=== PATIENT | male | born 1945 | race Caucasian/White ===

== ENCOUNTER 2019-10-03 16:36 | Emergency (ER) | payer MEDICARE, BC, SELFPAY ==
[2019-10-03] VITALS (19 sets, daily range): BP systolic 113–144; BP diastolic 66–74; PULSE 54–74; RESP 10–22; TEMP 36.9–37.4; O2SAT 95–100
--- NOTE | 2019-10-03 16:47 | ED.GENADUL_ITS ---
Discharge Plan Disposition Patient Disposition: HOME Condition: Improving Discharge Details Chief Complaint: Chest Pain Clinical Impression: Abdominal pain, epigastric Primary Care Provider: Chaparro Ware JR ED Provider: Carlo Kirkland Home Meds and New Rx's Prescriptions: No Action No Known Home Meds RF: 0 Discharge Instructions Instructions: Epigastric Pain (ED) Additional Instructions: 1. Drink plenty of fluids. 2. Continue all medications as prescribed. 3. Acetaminophen 1000mg every 4 hours (up to 5 time a day) and/or ibuprofen 600mg every 6 hours as needed for fever or pain. 4. Consider Pepcid 20 mg twice a day. Mylanta 30 cc as needed every 6 hours. Return to the Emergency Department (ED) if your condition worsens, does not improve as expected, or for ANY other concerns. Specifically, return if you have new or uncontrolled pain, worsening fever, difficulty breathing, vomiting, or are unable to drink fluids. Medical Decision Making 74-year-old gentleman who presented with an hour and a half of epigastric discomfort associated with eating a meal. Localized nonradiating pain to his epigastrium/lower chest. Exam normal except for epigastric tenderness which reproduced subjective pain. EKG on arrival negative. Bedside aortic ultrasound negative for evidence of aneurysm. Clinically improved after receiving oral antacids and IV metoclopramide. Labs normal including a negative troponin. On reevaluation, asymptomatic with no persistent abdominal discomfort, palpitations, or dyspnea. Discussed nondiagnostic findings, noting that his troponin was only drawn 1/2 hours after onset of symptoms. Recommended a 2-hour delta troponin. Patient felt clinically improved and appropriate for discharge home. Discharge plan for oral antacids, PCP follow-up, and return as needed. Given usual and customary return instructions prior to discharge. Medical Records Medical records reviewed: Yes I reviewed the patient's medical records. Imaging Data Radiologic Study: Imaging: Ultrasound (Limited bedside study) My impression: Proximal, mid, and distal transverse views of the order visualized with no evidence of aneurysm. Maximal aortic diameter 1.75 cm. No aneurysm visualized on sagittal view. Lab Data Lab results reviewed: Yes I reviewed the patient's lab results. Lab results narrative: Troponin, LFTs, BMP negative ECG Data Attestation: I personally reviewed and interpreted this ECG (s) as follows: (Sinus rhythm 71 bpm normal axis and intervals. Nonspecific changes. PVCs.) HPI 74-year-old gentleman with a past medical history which includes. Presents with 1/2 hours of atypical upper abdominal/midsternal chest discomfort. Endorses onset of symptoms after eating canned salmon and additional food. Had almost immediate onset of pain after this localized to his upper abdomen. He had one episode of emesis without change in symptoms. He endorses subjective heaviness in that region. Denies palpitations, tachycardia, diaphoresis, or near syncope. He has had no abdominal bloating, recent change in bowel habits, melena/hematochezia, or urinary symptoms. He denies a history of chest pain or coronary disease. General Date/Time Provider Initiated Documentation: 10/03/19 16:47 . Related Data Home Medications Medication Instructions Recorded Confirmed Unknown [No Known Home Meds] 10/03/19 10/03/19 Allergies Allergy/AdvReac Type Severity Reaction Status Date / Time No Known Allergies Allergy Unverified 10/03/19 16:49 General Stated Complaint: Chest Pain YANY: 2 Review of Systems All systems reviewed & are unremarkable except as noted in HPI and below PFSH Social History Smoking/Tobacco Use Status: Never Drug use: Never Substance use type: does not use Do you feel safe at home: Yes Do you feel safe in your relationship?: Yes Exam Narrative Exam Narrative: Nursing note and vital signs have been reviewed and noted. GENERAL: alert, active, uncomfortable appearance, belching frequently., well - hydrated, well-nourished HEENT: atraumatic/normocephalic, PERRLA, EOMI, conjunctiva clear, external ears/canals normal, nasal mucosa normal NECK: supple, full range of motion, no mass, normal lymphadenopathy, no thyromegaly CARDIOVASCULAR: RRR, no murmurs, nl pulses, no edema PULMONARY: nl effort, no audible wheezing or stridor, nl breath sounds with no focal deficit. no chest wall tenderness ABDOMEN: soft, epigastric tenderness. Palpation reproduces subjective pain, non-distended, no mass, no organomegaly EXTREMITY: normal muscle tone, all joints with FROM, no deformity or tenderness SKIN: no exanthem appreciated NEURO: gross motor exam normal, normal stance and gait PSYCH: alert and oriented, Course Vital Signs Vital signs: Vital Signs Temperature 99.3 F 10/03/19 16:38 Pulse 71 10/03/19 16:38 Respiratory Rate 10/03/19 16:38 Blood Pressure 132/67 10/03/19 16:38 Pulse Oximetry 100 10/03/19 16:38 Temperature 99.3 F 10/03/19 16:38 Temperature Source Skin 10/03/19 16:38 Pulse 71 10/03/19 16:38 Respiratory Rate 10/03/19 16:38 Blood Pressure 132/67 10/03/19 16:38 Blood Pressure Position Sitting 10/03/19 16:38 Pulse Oximetry 100 10/03/19 16:38 Oxygen Delivery Method Room Air 10/03/19 16:38 Oxygen Flow Rate 0 10/03/19 16:38 Pain Level 8 10/03/19 16:38
[2019-10-03] MEDS: Mylanta Suspension 30 ML CUP PO (17:03)
[2019-10-03] MEDS: Metoclopramide 10 MG/2 ML VIAL IVP (17:04)
[2019-10-03] MEDS: Normal Saline Flush 10 ML SYR IVP (17:06)
[2019-10-03] MEDS: Normal Saline 1,000 ML 125 ML IV (17:08)
[2019-10-03 17:10] LABS: Abs Immature Grans 0.02 k/cumm (0.0-0.09); Absolute Basophil Count 0.03 k/cumm (0.0-0.2); Absolute Eosinophil Count 0.07 k/cumm (0.0-0.7); Absolute Lymphocyte Count 1.49 k/cumm (1.2-3.4); Absolute Monocyte Count 0.41 k/cumm (0.11-0.7); Absolute Neutrophil Count 4.67 k/cumm (1.2-6.7); Basophils % 0.4; HCT 51.5 % (40.0-50.0); Immature Grans % 0.3; Lymphocytes % 22.3; Mean Corpuscular Hemoglobin 31.9 pg (27.0-33.0); Mean Corpuscular Volume 91.3 fL (80-95); Mean Platelet Volume 12.4 fL (8.0-11.0); Monocytes % 6.1; Neutrophils % 69.9; Platelet Count 164 x1000/uL (130-400); RBC 5.64 m/cumm (4.50-6.00); RBC Distribution Width 12.7 % (11.8-14.1); White Blood Cell Count 6.69 k/cumm (4.4-10.8)
[2019-10-03 17:27] LABS: ALT 29 U/L (16-63); AST 21 U/L (15-37); Albumin 4.5 g/dL (3.4-5.0); Alkaline Phosphatase 99 U/L (46-116); Anion Gap 12.6 mmol/L (3-11); BUN 14 mg/dL (7-18); Bilirubin, Total 1.2 mg/dL (0.2-1.0); CO2 27.4 mmol/L (21.0-32.0); CREATININE 0.93 mg/dL (0.70-1.30); Calcium 9.2 mg/dL (8.5-10.1); Chloride 103 mmol/L (98-107); Glucose 104 mg/dL (70-100); Potassium 3.4 mmol/L (3.5-5.1); Sodium 143 mmol/L (136-145); Total Protein 7.5 g/dL (6.4-8.2)
[2019-10-03 17:28] LABS: Troponin I < 0.05 ng/mL (0.00-0.06)
== END 2019-10-03 18:17 | disposition home or self-care (01) ==
PROVIDERS: Emergency Provider Emergency Medicine; PCP Family Medicine
DX: R10.13 Epigastric pain (principal)
CPT/HCPCS: 36415; 80053; 93005; 96361; 96374; 99285; 83735; 84484; 85025; 93010; J2765